=== PATIENT | female | born 1980 | race Caucasian/White ===

== ENCOUNTER → 2016-12-16 | Outpatient (REF) | payer MEDICAID | LOC: M LAB REF 13:20 | PROVIDERS: ATTEND Surgery | DX: L73.2 Hidradenitis suppurativa (principal) ==

== ENCOUNTER → 2017-03-15 | Outpatient (REF) | payer OTHER | LOC: M LAB REF 20:57 | PROVIDERS: ATTEND Physician Assistant Medical | DX: N30.00 Acute cystitis without hematuria (principal) ==

== ENCOUNTER → 2017-06-09 | Outpatient (REF) | payer OTHER ==
[2017-06-14 14:15] LABS: O+P EXAM Final report (.)
== END ==
LOC: M LAB REF 20:37
PROVIDERS: ATTEND Internal Medicine Gastroenterology
DX: R63.4 Abnormal weight loss (principal)

== ENCOUNTER 2017-07-25 09:35 | Day surgery (SDC) | payer OTHER ==
[~2017-07-25] VITALS: Ht 172.7 cm; Wt 54.9 kg
[~2017-07-25 09:35] MED LIST: PRENTAB55 PO; VICO7.5T11 PO; [UNRECOGNIZED DRUG - REMARK] PO
[2017-07-25] MEDS ORDERED: NS 1,000 ML IV ONE (10:00)
[2017-07-25] MEDS ORDERED: PROPOFOL 500 MG/50 ML VIAL As Ordered ONE (10:52)
[2017-07-25] MEDS ORDERED: LIDOCAINE 2% INJ 100 MG/5 ML SDV (FOR ANES.) As Ordered ONE (10:57)
--- NOTE | 2017-07-25 12:24 | ROOR ---
Patient Name: Latricia Low Procedure Date: 07/25/2017 11:25 AM Date of : 1980 Age: 37 Room: [facility] Gender: Female Note Status: Finalized Procedure: Upper GI endoscopy Indications: Dyspepsia, Nausea with vomiting Providers: Archie Salazar MD Referring MD: Dorota MOHAMUD MD Requesting Provider: Medicines: Monitored Anesthesia Care Complications: No immediate complications. Procedure: Pre-Anesthesia Assessment: - Prior to the procedure, a History and Physical was performed, and patient medications and allergies were reviewed. The patient is competent. The risks and benefits of the procedure and the sedation options and risks were discussed with the patient. All questions were answered and informed consent was obtained. Patient identification and proposed procedure were verified by the physician, the nurse and the anesthesiologist in the procedure room. Mental Status Examination: normal. Airway Examination: normal oropharyngeal airway and neck mobility. Respiratory Examination: clear to auscultation. CV Examination: normal. Prophylactic Antibiotics: The patient does not require prophylactic antibiotics. Prior Anticoagulants: The patient has taken no previous anticoagulant or antiplatelet agents. ASA Grade Assessment: II - A patient with mild systemic disease. After reviewing the risks and benefits, the patient was deemed in satisfactory condition to undergo the procedure. The anesthesia plan was to use monitored anesthesia care (MAC). Immediately prior to administration of medications, the patient was re-assessed for adequacy to receive sedatives. The heart rate, respiratory rate, oxygen saturations, blood pressure, adequacy of pulmonary ventilation, and response to care were monitored throughout the procedure. The physical status of the patient was re-assessed after the procedure. The Endoscope was introduced through the mouth, and advanced to the second part of duodenum. The upper GI endoscopy was accomplished without difficulty. The patient tolerated the procedure well. Findings: No gross lesions were noted in the entire esophagus. Two biopsies were obtained with cold forceps for evaluation of eosinophilic esophagitis in the middle third of the esophagus. Verification of patient identification for the specimen was done by the physician and nurse using the patient's name, date and medical record number. Estimated blood loss was minimal. Diffuse moderate inflammation characterized by erythema was found in the gastric antrum. Biopsies were taken with a cold forceps for Helicobacter pylori testing. The duodenal bulb and second portion of the duodenum were normal. Biopsies for histology were taken with a cold forceps for evaluation of celiac disease. Impression: - No gross lesions in esophagus. - Gastritis. Biopsied. - Normal duodenal bulb and second portion of the duodenum. Biopsied. - Biopsies performed in the middle third of the esophagus. Recommendation: - Patient has a contact number available for emergencies. The signs and symptoms of potential delayed complications were discussed with the patient. Return to normal activities tomorrow. Written discharge instructions were provided to the patient. - Resume previous diet. - Continue present medications. - Await pathology results. - Return to GI clinic as previously scheduled on 08/01/2017 at 9:00 AM. - Return to primary care physician. Archie Salazar MD Archie Salazar MD 07/25/2017 12:24:25 PM This report has been signed electronically. Number of Addenda: 0 Note Initiated On: 07/25/2017 11:25 AM Estimated Blood Loss: Estimated blood loss was minimal.
[2017-07-25 12:45] VITALS: BP 133/75
--- NOTE | 2017-07-25 12:54 | ROOR ---
Patient Name: Latricia Low Procedure Date: 07/25/2017 11:25 AM Date of : 1980 Age: 37 Room: [facility] Gender: Female Note Status: Finalized Procedure: Colonoscopy Indications: Chronic diarrhea Providers: Archie Salazar MD Referring MD: Dorota MOHAMUD MD Requesting Provider: Medicines: Monitored Anesthesia Care Complications: No immediate complications. Procedure: Pre-Anesthesia Assessment: - Prior to the procedure, a History and Physical was performed, and patient medications and allergies were reviewed. The patient is competent. The risks and benefits of the procedure and the sedation options and risks were discussed with the patient. All questions were answered and informed consent was obtained. Patient identification and proposed procedure were verified by the physician, the nurse and the anesthesiologist in the procedure room. Mental Status Examination: alert and oriented. Airway Examination: normal oropharyngeal airway and neck mobility. Respiratory Examination: clear to auscultation. CV Examination: normal. Prophylactic Antibiotics: The patient does not require prophylactic antibiotics. Prior Anticoagulants: The patient has taken no previous anticoagulant or antiplatelet agents. ASA Grade Assessment: II - A patient with mild systemic disease. After reviewing the risks and benefits, the patient was deemed in satisfactory condition to undergo the procedure. The anesthesia plan was to use monitored anesthesia care (MAC). Immediately prior to administration of medications, the patient was re-assessed for adequacy to receive sedatives. The heart rate, respiratory rate, oxygen saturations, blood pressure, adequacy of pulmonary ventilation, and response to care were monitored throughout the procedure. The physical status of the patient was re-assessed after the procedure. The Colonoscope was introduced through the anus and advanced to the terminal ileum, with identification of the appendiceal orifice and IC valve. The colonoscopy was performed without difficulty. The patient tolerated the procedure well. The quality of the bowel preparation was adequate to identify polyps 6 mm and larger in size. The terminal ileum, ileocecal valve, appendiceal orifice, and rectum were photographed. Scope insertion time was 3 minutes. Scope withdrawal time was 9 minutes. The total duration of the procedure was 12 minutes. Findings: The perianal and digital rectal examinations were normal. The terminal ileum appeared normal. Biopsies were taken with a cold forceps for histology. Verification of patient identification for the specimen was done by the physician and nurse using the patient's name, date and medical record number. The entire examined colon appeared normal on direct and retroflexion views. Biopsies for histology were taken with a cold forceps from the right colon, left colon, transverse colon and sigmoid colon for evaluation of microscopic colitis. Impression: - The examined portion of the ileum was normal. Biopsied. - The entire examined colon is normal on direct and retroflexion views. Recommendation: - Patient has a contact number available for emergencies. The signs and symptoms of potential delayed complications were discussed with the patient. Return to normal activities tomorrow. Written discharge instructions were provided to the patient. - Resume previous diet. - Continue present medications. - Await pathology results. - Repeat colonoscopy at age 51 for screening purposes. - Return to GI clinic as previously scheduled on 08/01/2017 at 9:00 AM. - Return to primary care physician. Archie Salazar MD Archie Salazar MD 07/25/2017 12:54:00 PM This report has been signed electronically. Number of Addenda: 0 Note Initiated On: 07/25/2017 11:25 AM Estimated Blood Loss: Estimated blood loss was minimal.
== END 2017-07-25 12:50 | disposition home or self-care (01) ==
LOC: M OPP 09:35 → EDSTATUS 11:35 → M OPP 12:50
PROVIDERS: ATTEND Internal Medicine Gastroenterology
DX: R19.7 Diarrhea, unspecified (principal); R10.13 Epigastric pain; R11.2 Nausea with vomiting, unspecified; K29.50 Unspecified chronic gastritis without bleeding; R63.4 Abnormal weight loss; M06.9 Rheumatoid arthritis, unspecified; J45.909 Unspecified asthma, uncomplicated; I10 Essential (primary) hypertension; R51 Headache; F17.210 Nicotine dependence, cigarettes, uncomplicated; Z88.2 Allergy status to sulfonamides; Z91.048 Other nonmedicinal substance allergy status; Z88.3 Allergy status to other anti-infective agents; Z88.8 Allergy status to other drugs, medicaments and biological substances; Z79.899 Other long term (current) drug therapy; Z98.1 Arthrodesis status

== ENCOUNTER 2019-01-23 11:53 | Emergency (ER) | payer OTHER ==
[~2019-01-23] VITALS: Ht 175.3 cm; Wt 61.4 kg
[2019-01-23 12:40] LABS: BASO % 0.2 % (0.0-1.0); EOS # 0.1 10^3/uL (0.0-0.50); HEMATOCRIT 41.7 % (36.0-47.0); LYMPH # 2.4 10^3/uL (1.5-4.5); LYMPH % 19.5 % (24.0-44.0); MEAN CORPUSCULAR HEMOGLOBIN 30.2 pg (27.0-33.0); MEAN CORPUSCULAR HGB CONC 33.6 g/dl (32.0-36.5); MEAN CORPUSCULAR VOLUME 90.1 fl (80.0-96.0); MONO # 0.7 10^3/uL (0.0-0.8); MONO % 5.6 % (0.0-5.0); NEUTROPHILS # 9.1 10^3/uL (1.8-7.7); NEUTROPHILS % 73.5 % (36.0-66.0); PLATELET COUNT, AUTOMATED 230 10^3/uL (150-450); RED BLOOD COUNT 4.63 10^6/uL (4.00-5.40); WHITE BLOOD COUNT 12.4 10^3/uL (4.0-10.0)
[2019-01-23 13:14] LABS: ALT/SGPT 25 U/L (12-78); BLOOD UREA NITROGEN 4 MG/DL (7-18); CALCIUM LEVEL 8.5 MG/DL (8.5-10.1); CARBON DIOXIDE LEVEL 25 MEQ/L (21-32); CHLORIDE LEVEL 102 MEQ/L (98-107); CREATININE FOR GFR 0.65 MG/DL (0.55-1.30); GLOMERULAR FILTRATION RATE > 60.0 (>60); GLUCOSE, FASTING 76 MG/DL (70-100); POTASSIUM SERUM 3.6 MEQ/L (3.5-5.1); SODIUM LEVEL 137 MEQ/L (136-145)
[2019-01-23 13:15] LABS: ALBUMIN 3.4 GM/DL (3.2-5.2); BILIRUBIN,DIRECT 0.1 MG/DL (0.0-0.2); BILIRUBIN,TOTAL 0.5 MG/DL (0.2-1.0); LIPASE 94 U/L (73-393); TOTAL PROTEIN 6.8 GM/DL (6.4-8.2)
[2019-01-23 13:19] LABS: HCG, SERUM QUALITATIVE NEGATIVE (NEGATIVE)
[2019-01-23] MEDS ORDERED: KETOROLAC 30 MG/ML VIAL (J1885) IV ONE (14:00)
[2019-01-23] MEDS ORDERED: NS 1,000 ML IV ONE (14:00)
--- NOTE | 2019-01-23 14:05 | REP ---
Clinical: Lower abdominal pain. Technique: Axial noncontrast images from the lung bases to the pubic symphysis with coronal and sagittal re-formations. Findings: Liver, spleen, pancreas, bilateral adrenal glands and kidneys are normal for noncontrast evaluation. Evidence for prior hysterectomy noted. The enteric system is without obstruction or acute inflammatory process. Pelvis demonstrates collapsed bladder and age-appropriate uterus/adnexa. No ascites. No free air. No adenopathy. Abdominal aorta without aneurysm. Musculoskeletal structures intact without focal osseous abnormality. Lung bases are clear. Impression: Normal noncontrast CT of the abdomen and pelvis. Evidence for prior cholecystectomy. Electronically Signed by Pedro Johnson MD 01/23/2019 01:55 P
--- NOTE | 2019-01-23 15:12 | REP ---
PELVIC SONOGRAPHY: HISTORY: Lower abdominal pain. Irregular vaginal bleeding. Comparison is made with today's CT study. SONOGRAPHIC FINDINGS: Transabdominal and transvaginal scanning are included. Visualized bladder chavez are smooth. Uterine dimensions are normal at 8.4 x 4.2 x 4.6 cm. Endometrial echo is 0.6 cm thick and centrally placed. There is evidence of a uterine scar. Normal size ovaries are seen bilaterally. Normal Doppler flow is observed. No ovarian mass, significant cyst or free fluid is seen. Right ovary measures 2.7 x 2.0 x 2.5 cm. Left ovarian dimensions are 3.4 x 2.1 x 2.3 cm. There is a 1.2 cm follicle in the left ovary. Resistive indices are 0.56 on the right and 0.44 on the left. IMPRESSION: Normal pelvic sonography. Electronically Signed by Donny Colby MD 01/23/2019 04:17 P
[2019-01-23] MEDS ORDERED: FLAG500T PO (15:39)
[2019-01-23] MEDS ORDERED: metroNIDAZOLE (FLAGYL) 500 MG TAB PO ONE (15:45)
[2019-01-23 16:08] VITALS: BP 127/83
[2019-01-23 16:20] LABS: CHLAMYDIA DNA AMPLIFICATION NEGATIVE (NEGATIVE); GC DNA AMPLIFICATION NEGATIVE (NEGATIVE)
== END 2019-01-23 16:10 | disposition home or self-care (01) ==
LOC: M ED 11:53
DX: N93.8 Other specified abnormal uterine and vaginal bleeding (principal); N76.0 Acute vaginitis; I10 Essential (primary) hypertension; Z88.1 Allergy status to other antibiotic agents; Z88.2 Allergy status to sulfonamides; Z88.8 Allergy status to other drugs, medicaments and biological substances; Z91.048 Other nonmedicinal substance allergy status; F17.210 Nicotine dependence, cigarettes, uncomplicated
CPT/HCPCS: 74176; 76830; 76856; 80048; 80076; 81001; 83690; 84703; 85025; 87086; 87210; 87491; 87591; 93976; 96361; 96374; 99284; J1885

== ENCOUNTER → 2019-05-10 | Outpatient (REF) | payer OTHER ==
[~2019-05-10] MED LIST changes: +FLAG500T PO; -VICO7.5T11 PO; +VICO7.5T12 PO
[2019-05-10 18:41] LABS: HEMOGLOBIN 13.9 g/dl (12.0-15.5); MEAN CORPUSCULAR HEMOGLOBIN 29.3 pg (27.0-33.0); MEAN CORPUSCULAR HGB CONC 33.1 g/dl (32.0-36.5); MEAN CORPUSCULAR VOLUME 88.4 fl (80.0-96.0); PLATELET COUNT, AUTOMATED 256 10^3/uL (150-450); RED BLOOD COUNT 4.75 10^6/uL (4.00-5.40); WHITE BLOOD COUNT 11.7 10^3/uL (4.0-10.0)
[2019-05-10 21:41] LABS: HCG, SERUM QUANTITATIVE 1470 MIU/ML
[2019-05-11 11:01] LABS: RUBELLA IgG QUALITATIVE IMMUNE (IMMUNE)
[2019-05-11 11:30] LABS: HEPATITIS C VIRUS ABY INDEX 0.1 INDEX (<0.8)
[2019-05-11 11:31] LABS: HIV 1&2 SCREEN CENTAUR NEGATIVE (NEGATIVE)
== END ==
LOC: M LAB REF 16:47
PROVIDERS: ATTEND Nurse Practitioner Women's Health
DX: O36.80X0 Pregnancy with inconclusive fetal viability, not applicable or unspecified (principal)

== ENCOUNTER → 2019-05-23 | Outpatient (REF) | payer OTHER | LOC: M LAB REF 17:31 | PROVIDERS: ATTEND Nurse Practitioner Women's Health | DX: O36.80X0 Pregnancy with inconclusive fetal viability, not applicable or unspecified (principal) ==

== ENCOUNTER → 2019-05-31 | Outpatient (REF) | payer OTHER | LOC: M LAB REF 13:22 | PROVIDERS: ATTEND Internal Medicine Endocrinology, Diabetes & Metabolism | DX: E04.1 Nontoxic single thyroid nodule (principal) ==

== ENCOUNTER → 2019-06-07 | Outpatient (REF) | payer OTHER | LOC: M LAB REF 12:31 | PROVIDERS: ATTEND Obstetrics & Gynecology | DX: O36.80X0 Pregnancy with inconclusive fetal viability, not applicable or unspecified (principal); Z3A.00 Weeks of gestation of pregnancy not specified ==

== ENCOUNTER → 2019-06-11 | Outpatient (REF) | payer OTHER | LOC: M LAB REF 16:30 | PROVIDERS: ATTEND Nurse Practitioner Women's Health | DX: O36.80X0 Pregnancy with inconclusive fetal viability, not applicable or unspecified (principal); Z3A.00 Weeks of gestation of pregnancy not specified | CPT/HCPCS: 84702; 86850; 86901; J2790 ==

== ENCOUNTER → 2019-07-02 | Outpatient (REF) | payer OTHER | LOC: M LAB REF 19:07 | PROVIDERS: ATTEND Nurse Practitioner Women's Health | DX: N76.0 Acute vaginitis (principal) ==

== ENCOUNTER 2019-10-16 13:12 | Emergency (ER) | payer OTHER ==
[~2019-10-16] VITALS: Ht 177.8 cm; Wt 63.6 kg
[2019-10-16] MEDS ORDERED: HYDR-3719 (13:18)
[2019-10-16] MEDS ORDERED: VITA50005 (13:18)
[2019-10-16] MEDS ORDERED: VITA2000 (13:18)
[2019-10-16 14:14] LABS: BASO # 0.1 10^3/uL (0.0-0.2); BASO % 0.6 % (0.0-1.0); EOS # 0.2 10^3/uL (0.0-0.5); EOS % 1.9 % (0.0-3.0); HEMATOCRIT 40.6 % (36.0-47.0); HEMOGLOBIN 13.6 g/dl (12.0-15.5); LYMPH # 3.1 10^3/uL (1.5-5.0); LYMPH % 25.4 % (24.0-44.0); MEAN CORPUSCULAR HEMOGLOBIN 29.7 pg (27.0-33.0); MEAN CORPUSCULAR HGB CONC 33.5 g/dl (32.0-36.5); MEAN CORPUSCULAR VOLUME 88.6 fl (80.0-96.0); MONO # 0.7 10^3/uL (0.0-0.8); MONO % 5.8 % (0.0-5.0); PLATELET COUNT, AUTOMATED 232 10^3/uL (150-450); RED BLOOD COUNT 4.58 10^6/uL (4.00-5.40); WHITE BLOOD COUNT 12.2 10^3/uL (4.0-10.0)
[2019-10-16 14:57] LABS: BLOOD UREA NITROGEN 4 MG/DL (7-18); CALCIUM LEVEL 8.8 MG/DL (8.5-10.1); CARBON DIOXIDE LEVEL 29 MEQ/L (21-32); CHLORIDE LEVEL 106 MEQ/L (98-107); CREATININE FOR GFR 0.51 MG/DL (0.55-1.30); GLOMERULAR FILTRATION RATE > 60.0 (>60); GLUCOSE, FASTING 81 MG/DL (70-100); HCG, SERUM QUANTITATIVE 14959 MIU/ML; POTASSIUM SERUM 3.4 MEQ/L (3.5-5.1); SODIUM LEVEL 138 MEQ/L (136-145)
--- NOTE | 2019-10-16 16:11 | REP ---
Clinical: Vaginal bleeding for dating and viability. Technique: Transabdominal first trimester obstetrical channel with color Doppler evaluation. Findings: Ultrasound examination demonstrates intrauterine with pole measuring at 5 weeks 6 days gestational age, but no discernible cardiac activity. No motion noted. Findings are most compatible with demise. Anteverted uterus measures 8.4 x 4.5 x 5.9 cm. Right ovary not visualized. Left ovary measures 2.9 x 2.3 x 2.9 cm (RI 0.40) with 1.6 cm corpus luteal cyst. No significant pelvic free fluid. Impression: 1. Findings compatible with demise at approximately 5 week 6 days gestational age. Electronically Signed by Pedro Johnson MD 10/16/2019 04:02 P
[2019-10-16 16:48] VITALS: BP 123/83
== END 2019-10-16 16:55 | disposition home or self-care (01) ==
LOC: M ED 13:12
DX: O02.1 Missed abortion (principal); O99.331 Smoking (tobacco) complicating pregnancy, first trimester; Z3A.01 Less than 8 weeks gestation of pregnancy; Z88.2 Allergy status to sulfonamides; Z91.048 Other nonmedicinal substance allergy status

== ENCOUNTER → 2020-05-01 | Outpatient (CLI) | payer OTHER ==
[~2020-05-01] MED LIST changes: +HYDR-3719; +VITA200031; +VITA50005
[2020-05-01 13:44] LABS: FREE T4 0.81 NG/DL (0.76-1.46); THYROID STIMULATING HORMONE 1.09 uIU/ML (0.358-3.740)
== END ==
LOC: M LAB 12:13
PROVIDERS: ATTEND Internal Medicine Endocrinology, Diabetes & Metabolism
DX: E04.1 Nontoxic single thyroid nodule (principal)

== ENCOUNTER → 2020-07-01 | Outpatient (REF) | payer OTHER ==
[2020-07-01 21:22] LABS: ALBUMIN 2.9 GM/DL (3.2-5.2); ALT/SGPT 10 U/L (12-78); BILIRUBIN,TOTAL 0.2 MG/DL (0.2-1.0); BLOOD UREA NITROGEN 2 MG/DL (7-18); CALCIUM LEVEL 9.1 MG/DL (8.5-10.1); CARBON DIOXIDE LEVEL 27 MEQ/L (21-32); CHLORIDE LEVEL 104 MEQ/L (98-107); CREATININE FOR GFR 0.43 MG/DL (0.55-1.30); GLOMERULAR FILTRATION RATE > 60.0 (>60); GLUCOSE, FASTING 95 MG/DL (70-100); POTASSIUM SERUM 3.4 MEQ/L (3.5-5.1); SODIUM LEVEL 137 MEQ/L (136-145); TOTAL PROTEIN 6.5 GM/DL (6.4-8.2)
== END ==
LOC: M LABDRWAD 16:27
PROVIDERS: ATTEND Nurse Practitioner Adult Health
DX: E87.6 Hypokalemia (principal)

== ENCOUNTER 2020-07-20 21:00 | Outpatient (CLI) | payer OTHER ==
[~2020-07-20] VITALS: Ht 177.8 cm; Wt 69.8 kg
[2020-07-20] VITALS (7 sets, daily range): BP systolic 123–156; BP diastolic 83–94
[2020-07-20 22:22] LABS: CREATININE,RANDOM URINE 21.4 MG/DL; TOTAL PROTEIN,RANDOM URINE 6.5 MG/DL (0.0-12.0)
[2020-07-20 22:52] LABS: HEMATOCRIT 34.5 % (36.0-47.0); HEMOGLOBIN 11.6 g/dl (12.0-15.5); MEAN CORPUSCULAR HEMOGLOBIN 30.3 pg (27.0-33.0); MEAN CORPUSCULAR HGB CONC 33.6 g/dl (32.0-36.5); MEAN CORPUSCULAR VOLUME 90.1 fl (80.0-96.0); PLATELET COUNT, AUTOMATED 202 10^3/uL (150-450); RED BLOOD COUNT 3.83 10^6/uL (4.00-5.40); WHITE BLOOD COUNT 20.5 10^3/uL (4.0-10.0)
[2020-07-20 23:15] LABS: ALT/SGPT < 6 U/L (12-78); BLOOD UREA NITROGEN 3 MG/DL (7-18); CALCIUM LEVEL 9.1 MG/DL (8.5-10.1); CARBON DIOXIDE LEVEL 23 MEQ/L (21-32); CHLORIDE LEVEL 109 MEQ/L (98-107); CREATININE FOR GFR 0.43 MG/DL (0.55-1.30); GLOMERULAR FILTRATION RATE > 60.0 (>60); GLUCOSE, FASTING 95 MG/DL (70-100); POTASSIUM SERUM 3.2 MEQ/L (3.5-5.1); SODIUM LEVEL 139 MEQ/L (136-145)
[2020-07-20 23:16] LABS: ALBUMIN 2.6 GM/DL (3.2-5.2); BILIRUBIN,TOTAL 0.2 MG/DL (0.2-1.0); TOTAL PROTEIN 5.9 GM/DL (6.4-8.2)
[2020-07-21] MEDS ORDERED: ACETAMINOPHEN 500 MG TAB PO PRN
--- NOTE | 2020-07-21 00:42 | HPEPDOC ---
Obstetrical History & Physical General Date of Admission July 20, 2020 History of Present Illness 40 yo , 2, 5, 4 at 31 6/7 weeks gestation by LMP (EDC=09/15/2020) presents with headaches for 5 days. The pain around her eyes has been worse for the past 2 days. She has cramping in her lower abdomen, and pain in her lower back. movement is present but decreased. She receives care from the Center at [facility]. Information Provided By: Patient Age: 40 : 11 Term: 3 Pre-term: 2 Abortions: 5 Livin Care Care: Good Care Dating Final EDC: Sep 15, 2020 Final EDC by: LMP Antepartum Course Diagnos(e)s H/o severe preeclampsia at 34 weeks last 2015 h/o IUFD at 34 weeks 2010 maternal Rheumatoid arthritis Past Medical History Past Obstetrical History : Past Obstetrical History: Multigravida Past Medical History Medical History OB hx: 1. 40 week 1998 2. 40 week 2000 3. 40 week 2001 4: SAB 2004 5: SAB 2006 6: 34 week IUFD delivered by 2010 7: 34 week severer preeclampsia 2015 Medical Hx: 1.Rheumatoid Arthritis--No meds during 2. Chronic Narcotic use due to RA 3. Anxiety/depression 4. migraines 5. low back pain 6. chronic hypertension resolved 2018--no meds surgical hx: 1. x 2 2. CCY 3. Breast lumpectomy , 4. Jaw surgery 5. thumb surgery Family History Significant Family History: No pertinent family hx Social History Marital Status: Family situation: Spouse/partner home Psychosocial History: Anxiety * Smoker: current smoker Alcohol: Denies Drugs: denies Allergies Coded Allergies: Fabric Softeners (Verified Allergy, Mild, 01/23/19) Rash Sulfa (Sulfonamide Antibiotics) (Verified Allergy, Mild, 01/23/19) Hives povidone (Verified Allergy, Mild, 01/23/19) Hives with surgical prep iodine (Verified Allergy, Unknown, 01/23/19) Hives with surgical prep Medications Miscellaneous Medications Cholecalciferol (Vitamin D3) (Vitamin D3) 50 Mcg Capsule Ergocalciferol (Vitamin D2) (Vitamin D2) 50,000 Units Cap Hydrocodone/Acetaminophen (Hydrocodone-Acetamin 10-325 mg) 1 Each Tablet Physical Examination Physical Examination GENERAL: Alert and oriented times three. BREAST: . ABDOMEN: Gravid and non-tender to touch. FETUS: Is vertex (VTX) by sterile vaginal examination (SVE), fetus is vertex (VTX) by Randall. HEART RATE: Regular rate and rhythm. LUNGS: Clear to auscultation (CTA). EXTREMITIES: No edema. No clonus. Deep tendon reflexes (DTRs) + . Vital Signs/I&O Vital Signs Date Time Temp Pulse Resp B/P (MAP) Pulse Ox O2 Delivery O2 Flow Rate FiO2 07/20/20 23:18 112 18 123/83 (96) 07/20/20 22:31 98.4 Laboratory Data 24H LABS Laboratory Tests 2 07/20/20 22:05: Urine Random Creatinine 21.4, Urine Random Total Protein 6.5 07/20/20 22:41: Nucleated Red Blood Cells % (auto) 0.0, Anion Gap 7L, Glomerular Filtration Rate > 60.0, Calcium Level 9.1, Total Bilirubin 0.2, Aspartate Amino Transf (AST/SGOT) 11, Alanine Aminotransferase (ALT/SGPT) < 6L, Alkaline Phosphatase 130H, Total Protein 5.9L, Albumin 2.6L, Albumin/Globulin Ratio 0.8L CBC/BMP Laboratory Tests 07/20/20 22:41 Pertinent Laboratoy Data Blood Type: A- RBC Antibody Screen: Negative HIV: Negative Hepatitis B: Negative Rapid Plasma Reagin: Nonreactive Rubella: Immune Varicella: Immune Chlamydia/Gonorrhea: Negative Assessment Variability: Moderate Accelerations: Positive Decelerations: None Tocometer Contractions: No Assessment/Plan Assessment Pt is a 40-year-old (G)11 para (P)3-2-5-4 at 31+6 weeks by LMP (EDC=09/15/2020) Presents to Labor and Delivery with headaches and elevated blood pressures. Plan Evaluate for preeclampsia: labs subsequently negative BP's have improved Treat JOHNSON with Tylenol Called [facility], but did not get a response monitoring RADHA KANG MD Jul 21, 2020 00:42
[2020-07-21 00:52] VITALS: BP 123/81
== END 2020-07-21 02:03 | disposition home or self-care (01) ==
LOC: M LDO 21:00
PROVIDERS: ATTEND Specialist
DX: O26.893 Other specified pregnancy related conditions, third trimester (principal); R10.9 Unspecified abdominal pain; O99.333 Smoking (tobacco) complicating pregnancy, third trimester; F17.200 Nicotine dependence, unspecified, uncomplicated; O99.891 Other specified diseases and conditions complicating pregnancy; M06.9 Rheumatoid arthritis, unspecified; Z3A.31 31 weeks gestation of pregnancy; Z88.1 Allergy status to other antibiotic agents; Z88.2 Allergy status to sulfonamides; Z88.8 Allergy status to other drugs, medicaments and biological substances; Z98.891 History of uterine scar from previous surgery; Z91.048 Other nonmedicinal substance allergy status

== ENCOUNTER 2020-08-03 16:59 | Outpatient (CLI) | payer OTHER ==
[~2020-08-03] VITALS: Ht 177.8 cm; Wt 72.9 kg
[2020-08-03 17:27] VITALS: BP 150/85
[2020-08-03 18:30] VITALS: BP 133/76
[2020-08-03] MEDS ORDERED: ONDANSETRON 4 MG ORAL DISINTEGRATING TAB SL PRN (18:30)
--- NOTE | 2020-08-03 18:50 | IPNPDOC ---
Obstetrical Progress Note Date of Service Aug 03, 2020 Subjective 40-year-old 11, para 5/4 at 33+6 weeks gestation. Previous 2. History of preeclampsia (29 weeks) previous and chronic hypertension. History of a stillborn at 32 weeks. She is also followed by nephrology for chronic low potassium. Also has a history of chronic narcotic use secondary to her history of arthritis. She is a complicated OB patient at the center in [place]. She currently takes potassium 20 mEq 4 times a day, PNV, Tylenol when necessary, Tums when necessary, omeprazole when necessary. She does not take any antihypertensive. She has received corticosteroids during this for threatened labor. Patient presents today complaining of decreased movement. Denies vaginal bleeding, loss of fluid or uterine contractions. Patient has started to feel the baby move since she arrived to triage. Denies headache, visual changes, right upper quadrant pain, shortness breath or chest pain. Objective Vital Signs Date Time Temp Pulse Resp B/P (MAP) Pulse Ox O2 Delivery O2 Flow Rate FiO2 08/03/20 18:30 99.9 88 16 133/76 (95) 08/03/20 17:27 99.9 95 16 150/85 (106) 97 Assessment Heart Rate (FHR): 135 Variability: Moderate Accelerations: Positive Decelerations: None Heart Rate Tracing: Category I Tocometer Contractions: No Assessment and Plan Age: 40 : 11 Livin Status: Reassuring Additional Comments Ultrasound, gerard: cephalic, MVP = 5cm. BPP 10/10 EFM: Cat I/RNST Pass Christian: no ctxs A/P: 40-year-old, G 11, P4, with a reassuring biophysical profile at bedside. D iscussed possible antihypertensive therapy. The patient was resistant to this, saying that her blood pressure was dropped too low. Repeat blood pressure was normotensive. No evidence of severe features of preeclampsia / preeclampsia/ gestational hypertension. -Patient offered reassurance -She was encouraged to keep her appointments as scheduled -Third trimester precautions and instructions reviewed. DO GERRY Mccartney JONATHAN R. DO Aug 03, 2020 18:50
[2020-08-03] MEDS ORDERED: PRENTAB9 PO (18:57)
[2020-08-03] MEDS ORDERED: TUMS500C PO (18:57)
[2020-08-03] MEDS ORDERED: MAPA500T2 PO (18:57)
[2020-08-03] MEDS ORDERED: OMEP40CA97 PO (18:57)
[2020-08-03] MEDS ORDERED: POTA20TA6 PO (18:57)
== END 2020-08-03 18:55 | disposition home or self-care (01) ==
LOC: M LDO 16:59
PROVIDERS: ATTEND Obstetrics & Gynecology
DX: O36.8130 Decreased fetal movements, third trimester, not applicable or unspecified (principal); O10.013 Pre-existing essential hypertension complicating pregnancy, third trimester; Z87.59 Personal history of other complications of pregnancy, childbirth and the puerperium; Z3A.33 33 weeks gestation of pregnancy

== ENCOUNTER → 2021-05-14 | Outpatient (REF) | payer OTHER ==
[~2021-05-14] MED LIST changes: +ERGO500029; +MAPA500T2 PO; +OMEP40CA4 PO; +POTA20TA6 PO; +PRENTAB9 PO; +TUMS500C PO; -VITA50005
[2021-05-14 17:45] LABS: C REACTIVE PROTEIN QUANTITATIV 0.43 MG/DL (0.00-0.30); RHEUMATOID FACTOR QUANT < 10.0 IU/ML (<15.0)
== END ==
LOC: M LAB REF 16:32
PROVIDERS: ATTEND Internal Medicine
DX: Z01.818 Encounter for other preprocedural examination (principal); M06.9 Rheumatoid arthritis, unspecified

== ENCOUNTER → 2021-12-02 | Outpatient (REF) | payer OTHER ==
[~2021-12-02] MED LIST changes: +POTA-151 PO; -POTA20TA6 PO
[2021-12-02 16:24] LABS: C REACTIVE PROTEIN QUANTITATIV < 0.30 MG/DL (0.00-0.30); RHEUMATOID FACTOR QUANT < 10.0 IU/ML (<15.0)
== END ==
LOC: M LAB REF 16:09
PROVIDERS: ATTEND Internal Medicine
DX: M06.9 Rheumatoid arthritis, unspecified (principal)

== ENCOUNTER 2022-04-29 22:21 | Emergency (ER) | payer OTHER ==
[~2022-04-29] VITALS: Ht 175.3 cm; Wt 62.8 kg
[2022-04-30 01:52] VITALS: BP 122/70
== END 2022-04-30 01:57 | disposition home or self-care (01) ==
LOC: M ED 22:21
DX: Z47.89 Encounter for other orthopedic aftercare (principal); Z88.2 Allergy status to sulfonamides; Z88.8 Allergy status to other drugs, medicaments and biological substances; Z88.6 Allergy status to analgesic agent; Z79.899 Other long term (current) drug therapy

== ENCOUNTER → 2022-05-13 | Outpatient (REF) | payer OTHER ==
[2022-05-13 17:16] LABS: C REACTIVE PROTEIN QUANTITATIV < 0.30 MG/DL (0.00-0.30); RHEUMATOID FACTOR QUANT < 10.0 IU/ML (<15.0)
== END ==
LOC: M LAB REF 16:05
PROVIDERS: ATTEND Registered Nurse
DX: M06.9 Rheumatoid arthritis, unspecified (principal); G43.909 Migraine, unspecified, not intractable, without status migrainosus

== ENCOUNTER → 2022-11-22 | Outpatient (CLI) | payer OTHER | LOC: M WHC 09:12 | PROVIDERS: ATTEND Internal Medicine | DX: E04.1 Nontoxic single thyroid nodule (principal) ==

== ENCOUNTER → 2022-11-30 | Outpatient (CLI) | payer OTHER ==
[2022-11-30 15:28] LABS: FREE T3 3.3 PG/ML (2.3-4.2); FREE T4 1.06 NG/DL (0.89-1.76); THYROID STIMULATING HORMONE 1.583 uIU/ML (0.55-4.78)
== END ==
LOC: M LAB 14:19
PROVIDERS: ATTEND Otolaryngology
DX: D44.0 Neoplasm of uncertain behavior of thyroid gland (principal)

== ENCOUNTER 2023-02-01 08:13 | Day surgery (SDC) | payer OTHER ==
[~2023-02-01] VITALS: Ht 175.3 cm; Wt 63.8 kg
[~2023-02-01 08:13] MED LIST changes: +HYDR-3719 PO; +IBUP80TA PO; +MEDR10TA9 PO
[2023-02-01] MEDS ORDERED: ONDANSETRON 4MG 2ML VIAL As Ordered ONE (09:19)
[2023-02-01] MEDS ORDERED: LIDOCAINE 2% 100MG/5ML SDV (FOR ANES.) As Ordered ONE (09:19)
[2023-02-01] MEDS ORDERED: SUGAMMADEX SODIUM 500 MG/5 ML VIAL (BRIDION) As Ordered ONE (09:19)
[2023-02-01] MEDS ORDERED: propofoL 200 MG/20 ML VIAL As Ordered ONE (09:19)
[2023-02-01] MEDS ORDERED: ROCURONIUM BROMIDE 50MG/5ML VIAL As Ordered ONE (09:19)
[2023-02-01] MEDS ORDERED: fentaNYL 250 MCG/5 ML INJECTION As Ordered ONE (09:24)
[2023-02-01] MEDS ORDERED: MIDAZOLAM INJ 2MG/2ML VIAL As Ordered ONE (09:25)
[2023-02-01] MEDS ORDERED: LIDOCAINE W/EPINEPHRINE 1% 20ML VIAL As Ordered ONE (10:36)
[2023-02-01] MEDS ORDERED: HYDROmorphone HCL 2MG/ML 1ML VIAL As Ordered ONE (12:16)
[2023-02-01] MEDS ORDERED: fentaNYL 100 MCG/2 ML INJECTION IV PRN (15:05)
[2023-02-01] MEDS ORDERED: LR 1,000 ML IV SCH (15:05)
[2023-02-01] MEDS ORDERED: ONDANSETRON 4MG 2ML VIAL IV PRN (15:05)
[2023-02-01] MEDS: HYDROMORPHONE HCL 0.5 MG/ 0.5 ML SYRINGE IV PRN ×2 (15:42→15:47)
[2023-02-01] MEDS: oxyCODONE 5MG TAB PO PRN ×2 (15:42→16:37)
[2023-02-01] MEDS ORDERED: ACETAMINOPHEN TAB 650MG DOSE (2X325MG) PO STA (16:15)
[2023-02-01 17:18] VITALS: BP 154/98; TEMP 97.2; O2SAT 96
== END 2023-02-01 17:24 | disposition home or self-care (01) ==
LOC: M SDC 08:13
PROVIDERS: ATTEND Otolaryngology
DX: E04.1 Nontoxic single thyroid nodule (principal); J44.9 Chronic obstructive pulmonary disease, unspecified; M06.9 Rheumatoid arthritis, unspecified; F41.9 Anxiety disorder, unspecified; F32.A Depression, unspecified; F17.211 Nicotine dependence, cigarettes, in remission; I45.10 Unspecified right bundle-branch block; Z79.899 Other long term (current) drug therapy; G43.909 Migraine, unspecified, not intractable, without status migrainosus; F11.90 Opioid use, unspecified, uncomplicated; Z88.2 Allergy status to sulfonamides; Z88.5 Allergy status to narcotic agent; Z88.8 Allergy status to other drugs, medicaments and biological substances
CPT/HCPCS: 60220; 88307; J1100; J1170; J2250; J2405; J3010

== ENCOUNTER → 2023-06-09 | Outpatient (REF) | payer OTHER ==
[2023-06-09 17:10] LABS: C REACTIVE PROTEIN QUANTITATIV < 0.40 MG/DL (<1.0)
[2023-06-09 17:12] LABS: RHEUMATOID FACTOR QUANT < 3.5 IU/ML (<14)
[2023-06-11 19:07] LABS: ANTINUCLEAR ANTIBODIES DIRECT Negative (Negative); CYCLIC CITRULLINATED PEPTIDE 4 units (0-19)
== END ==
LOC: M LAB REF 16:40
PROVIDERS: ATTEND Internal Medicine
DX: M06.9 Rheumatoid arthritis, unspecified (principal)

== ENCOUNTER → 2023-06-22 | Outpatient (REF) | payer OTHER ==
[2023-06-22 17:47] LABS: APPEARANCE, URINE CLEAR (CLEAR); BACTERIA, URINE AUTO NEGATIVE (NEGATIVE); BILIRUBIN, URINE AUTO NEGATIVE (NEGATIVE); BLOOD, URINE BLOOD NEGATIVE (NEGATIVE); CALCIUM OXALATE CRYSTALS MODERATE; COLOR, URINE YELLOW (YELLOW); GLUCOSE, URINE (UA) AUTO NEGATIVE (NEGATIVE); KETONE, URINE AUTO NEGATIVE (NEGATIVE); LEUKOCYTE ESTERASE, URINE AUTO NEGATIVE (NEGATIVE); NITRITE, URINE AUTO NEGATIVE (NEGATIVE); PROTEIN, URINE AUTO NEGATIVE (NEGATIVE); RBC, URINE AUTO 0 /HPF (0-3); SPECIFIC GRAVITY URINE AUTO 1.021 (1.002-1.035); SQUAMOUS EPITHELIAL CELL UR AU 1 /HPF (0-6); UROBILINOGEN, URINE AUTO 0.2 mg/dL (0.0-2.0); WBC, URINE AUTO 2 /HPF (0-3)
== END ==
LOC: M LAB REF 16:20
PROVIDERS: ATTEND Internal Medicine
DX: R76.8 Other specified abnormal immunological findings in serum (principal)

== ENCOUNTER → 2023-11-09 | Outpatient (CLI) | payer OTHER | LOC: M PLAIMG 11:13 | PROVIDERS: ATTEND Otolaryngology | DX: J32.0 Chronic maxillary sinusitis (principal) ==

== ENCOUNTER → 2024-01-05 | Outpatient (CLI) | payer OTHER ==
[2024-01-05 08:55] LABS: HEMATOCRIT 38.9 % (36.0-47.0); HEMOGLOBIN 13.2 g/dl (12.0-15.5); MEAN CORPUSCULAR HEMOGLOBIN 29.1 pg (27.0-33.0); MEAN CORPUSCULAR HGB CONC 33.9 g/dl (32.0-36.5); MEAN CORPUSCULAR VOLUME 85.9 fl (80.0-96.0); PLATELET COUNT, AUTOMATED 209 10^3/uL (150-450); RED BLOOD COUNT 4.53 10^6/uL (4.00-5.40); WHITE BLOOD COUNT 4.9 10^3/uL (4.0-10.0)
[2024-01-05 09:02] LABS: ERYTHROCYTE SEDIMENTATION RATE 5 mm/hr (0-20)
[2024-01-05 09:28] LABS: C REACTIVE PROTEIN QUANTITATIV < 0.40 MG/DL (<1.0)
[2024-01-05 09:30] LABS: ALBUMIN 3.3 G/DL (3.2-5.2); ALKALINE PHOSPHATASE 70 U/L (46-116); ALT/SGPT 15 U/L (7.0-40); AST/SGOT 11 U/L (<34); BILIRUBIN,TOTAL 0.6 MG/DL (0.3-1.2); BLOOD UREA NITROGEN 7 MG/DL (9-23); CALCIUM LEVEL 8.5 MG/DL (8.5-10.1); CARBON DIOXIDE LEVEL 28 MMOL/L (20-31); CHLORIDE LEVEL 107 MMOL/L (98-107); CHOLESTEROL LEVEL 180 MG/DL (<200); CHOLESTEROL RISK RATIO 4.48 (<5); CREATININE FOR GFR 0.59 MG/DL (0.55-1.30); GLOMERULAR FILTRATION RATE > 60.0 (>58); GLUCOSE, FASTING 92 MG/DL (60-100); HDL CHOLESTEROL 40.1 MG/DL (>40); LDL CHOLESTEROL 116.3 MG/DL (<100); NON-HDL-C 139.9 MG/DL; POTASSIUM SERUM 3.5 MMOL/L (3.5-5.1); SODIUM LEVEL 141 MMOL/L (136-145); TOTAL PROTEIN 6.3 G/DL (5.7-8.2); TRIGLYCERIDES LEVEL 118 MG/DL (<150)
[2024-01-05 09:32] LABS: FREE T4 1.22 NG/DL (0.89-1.76); THYROID STIMULATING HORMONE 1.409 uIU/ML (0.55-4.78)
== END ==
LOC: M LAB 08:06
PROVIDERS: ATTEND Registered Nurse
DX: E55.9 Vitamin D deficiency, unspecified (principal); E87.6 Hypokalemia; Z13.220 Encounter for screening for lipoid disorders; M06.9 Rheumatoid arthritis, unspecified; M25.512 Pain in left shoulder; Z79.899 Other long term (current) drug therapy

== ENCOUNTER → 2025-06-03 | Outpatient (CLI) | payer OTHER | LOC: M WUC 11:37 | PROVIDERS: ATTEND Nurse Practitioner Family | DX: M54.50 Low back pain, unspecified (principal) ==